=== PATIENT | male | born 1990 | race Caucasian/White ===

== ENCOUNTER 2016-04-15 13:22 | Emergency (ER) | payer MEDICARE | END 2016-04-15 15:55 | disposition home or self-care (01) | LOC: D.ER 13:22 | DX: K08.89 Other specified disorders of teeth and supporting structures (principal); K02.9 Dental caries, unspecified ==

== ENCOUNTER 2019-02-08 01:18 | Emergency (ER) | payer OTHER ==
[~2019-02-08] VITALS: Ht 175.3 cm; Wt 77.1 kg
[2019-02-08 01:28] VITALS: Ht 175.3 cm; Wt 77.1 kg
[2019-02-08 04:02] VITALS: BP 139/83
== END 2019-02-08 04:03 | disposition other institution (70) ==
LOC: D.ER 01:18
DX: T20.22XA Burn of second degree of lip(s), initial encounter (principal); T26.02XA Burn of left eyelid and periocular area, initial encounter; T26.01XA Burn of right eyelid and periocular area, initial encounter; T20.37XA Burn of third degree of neck, initial encounter; X08.8XXA Exposure to other specified smoke, fire and flames, initial encounter; Y93.9 Activity, unspecified; Y92.9 Unspecified place or not applicable; S05.01XA Injury of conjunctiva and corneal abrasion without foreign body, right eye, initial encounter; T15.81XA Foreign body in other and multiple parts of external eye, right eye, initial encounter